=== PATIENT | male | born 1980 | race Hispanic/Latino ===

== ENCOUNTER → 2025-06-05 | Day surgery (SDC) | payer BC ==
[2025-05-30 12:31] LABS: EST GLOMERULAR FILTRATION RATE 110.0 ML/MIN (>=60)
[~2025-06-05] MED LIST: CYCLOPENTOLATE HCL 2% OPTH SOLN 2 ML BTL OP ONE; GATIFLOXACIN(OPTH) 5 ML LIQD ONE; KETAMINE HCL INJ 50 MG/ML 10 ML VIAL ONE; LACTATED RINGER'S 1,000 ML ONE; LIDOCAINE HCL 2% LOCAL INJ 5 ML SDV VIAL INJ ONE; MIDAZOLAM HCL 2 MG/2 ML VIAL ONE; PHENYLEPHRINE HCL 2 ML DROPS ONE; PROPOFOL IV EMULSION 10 MG/ML 20 ML VIAL ONE; SODIUM CHLORIDE 0.9% INJ 10 ML VIAL ONE; TETRACAINE HCL 0.5% OPTH SOLN 4 ML BTL ONE; ZESTRIL10 MG PO
[2025-06-05 14:02] VITALS: TEMP 97.8
[2025-06-05 14:15] VITALS: BP 124/70; PULSE 87; RESP 15; O2SAT 96
== END | disposition home or self-care (01) ==
LOC: OR 10:02
PROVIDERS: ATTEND Ophthalmology
DX: H25.11 Age-related nuclear cataract, right eye (principal); G47.33 Obstructive sleep apnea (adult) (pediatric); I10 Essential (primary) hypertension; E66.01 Morbid (severe) obesity due to excess calories; Z88.6 Allergy status to analgesic agent; Z88.8 Allergy status to other drugs, medicaments and biological substances; Z01.810 Encounter for preprocedural cardiovascular examination; Z01.812 Encounter for preprocedural laboratory examination; Z79.899 Other long term (current) drug therapy
CPT/HCPCS: 36415; 80048; 85014; 85018; 93005; J2003; J2250; V2632